=== PATIENT | female | born 1960 | race Two or more races ===

== ENCOUNTER 2018-07-17 10:11 | Outpatient (CLI) | payer OTHER ==
[~2018-07-17 10:11] MED LIST: BRAIN MIGHT-DH1 EACH; OSTERA TABLET1 EACH; SYNTHROID175 MCG
== END 2018-07-17 14:59 | disposition home or self-care (01) ==
LOC: SONOGRAMA 10:11
DX: E03.8 Other specified hypothyroidism (principal)

== ENCOUNTER 2019-02-20 14:05 | Outpatient (CLI) | payer OTHER | END 2019-02-20 14:20 | disposition home or self-care (01) | LOC: MAMO-SONO 14:05 | DX: Z12.31 Encounter for screening mammogram for malignant neoplasm of breast (principal); Z87.898 Personal history of other specified conditions; N64.4 Mastodynia ==

== ENCOUNTER → 2019-03-09 | Outpatient (CLI) | payer OTHER | END | disposition home or self-care (01) | LOC: NUCLEAR 13:32 | DX: M85.89 Other specified disorders of bone density and structure, multiple sites (principal); M81.0 Age-related osteoporosis without current pathological fracture ==

== ENCOUNTER → 2019-07-04 09:39 | Outpatient (CLI) | payer OTHER | END | disposition home or self-care (01) | LOC: LAB 09:39 | DX: J11.1 Influenza due to unidentified influenza virus with other respiratory manifestations (principal) ==

== ENCOUNTER 2019-11-27 07:30 | Outpatient (CLI) | payer OTHER | END 2019-11-27 14:12 | disposition home or self-care (01) | LOC: SONOGRAMA 07:30 | DX: E04.1 Nontoxic single thyroid nodule (principal) ==

== ENCOUNTER 2020-01-11 14:15 | Outpatient (CLI) | payer OTHER | END 2020-01-11 14:49 | disposition home or self-care (01) | LOC: MAMO-SONO 14:15 | DX: Z12.31 Encounter for screening mammogram for malignant neoplasm of breast (principal); Z12.73 Encounter for screening for malignant neoplasm of ovary ==

== ENCOUNTER 2021-01-23 11:05 | Outpatient (CLI) | payer OTHER | END 2021-01-23 11:18 | disposition home or self-care (01) | LOC: SONOGRAMA 11:05 | DX: N63.10 Unspecified lump in the right breast, unspecified quadrant (principal); N63.20 Unspecified lump in the left breast, unspecified quadrant ==

== ENCOUNTER 2022-02-11 07:51 | Outpatient (CLI) | payer OTHER | END 2022-02-11 07:57 | disposition home or self-care (01) | LOC: MAMO-SONO 07:51 | PROVIDERS: ATTEND Obstetrics & Gynecology Obstetrics | DX: N64.4 Mastodynia (principal) ==

== ENCOUNTER 2023-07-18 15:14 | Outpatient (CLI) | payer OTHER | END 2023-07-18 15:25 | disposition home or self-care (01) | LOC: MAMO-SONO 15:14 | DX: N64.4 Mastodynia (principal) ==

== ENCOUNTER 2024-07-30 13:58 | Outpatient (CLI) | payer OTHER | END 2024-07-30 14:22 | disposition home or self-care (01) | LOC: MAMO-SONO 13:58 | DX: N64.4 Mastodynia (principal) ==

== ENCOUNTER 2025-01-14 12:48 | Outpatient (CLI) | payer OTHER | END 2025-01-14 12:59 | disposition home or self-care (01) | LOC: SONOGRAMA 12:48 | PROVIDERS: ATTEND Obstetrics & Gynecology Obstetrics | DX: N63 Unspecified lump in breast (principal) ==